=== PATIENT | male | born 1950 | race African-American/Black ===

== ENCOUNTER 2017-07-21 17:48 | Inpatient (IN) | payer MEDICARE, OTHER ==
[2017-07-21] MEDS ORDERED: Potassium Chloride 20 MEQ TAB ONE (19:29)
[2017-07-21 19:44] LABS: Troponin I Less than 0.010 ng/mL (< 0.028)
[2017-07-21] MEDS ORDERED: Albuterol Sulfate 2.5 mg/3 ml Neb ONE (20:06)
[2017-07-21] MEDS ORDERED: OLANZapine 5 MG TAB ONE (20:26)
[2017-07-21] MEDS ORDERED: Magnesium 2 GM/NS 0.9% 100 ML 2 GM in Premix Bag 1 BAG IVPB SCH (20:30)
[2017-07-21] MEDS ORDERED: Magnesium Sulfate 2 GM/100 ML BAG ONE (21:06)
[2017-07-21] MEDS ORDERED: Ondansetron HCl/PF 4 MG/2 ML Vial IVP PRN (22:52)
[2017-07-21] MEDS ORDERED: Ondansetron ODT 4 MG TAB SL PRN (22:52)
[2017-07-21] MEDS ORDERED: Sodium Chloride 0.9% 1,000 ML IV SCH (22:52)
[2017-07-21 23:15] LABS: Lactic Acid 3.4 mmol/L (0.5-2.2)
[2017-07-21] MEDS ORDERED: FLU VACC TS2017-18 (>65YR) 0.5 ML SYRINGE IM ONE (23:30)
[2017-07-22] MEDS ORDERED: Acetaminophen 500 MG TAB PO PRN (01:41)
[2017-07-22] MEDS ORDERED: Acetaminophen 325 MG TAB PO PRN (07:34)
[2017-07-22] MEDS ORDERED: Zolpidem Tartrate 5 MG TAB PO PRN (07:34)
[2017-07-22] MEDS ORDERED: Ondansetron HCl/PF 4 MG/2 ML Vial IVP PRN (07:34)
[2017-07-22] MEDS ORDERED: HYDROcodone/Acetaminophen 5/325 mg Tablet PO PRN (07:34)
--- NOTE | 2017-07-22 08:12 | HP ---
PRIMARY CARE PHYSICIAN: Dr. Neil Boone. Referred to the [facility] by [facility] after transfer from [facility], referred for COPD exacerbation. Patient has been severely short of breath 2-3 da ys, had a cough, nonproductive. No chest pain, no fever, no chills, no sweats. He has been hospital ized in [place] with similar symptoms. He smokes 2 packs a day. He states he quit 24 hours ago. PAST MEDICAL HISTORY: COPD. MEDICATIONS: Unknown. He does not know their names and cannot describe them. As a matter of fact, he could not even tell me whether they were pills or inhalers. ALLERGIES: None. PAST SURGICAL HISTORY: None. FAMILY HISTORY: His parents are . There is no coronary artery disease, diabetes, and hypert ension. SOCIAL HISTORY: Single, drinks no alcohol. Smokes 2 packs a day for many, many years. CODE STATUS: FULL CODE status. Surrogate decision maker unavailable at the present time. He has no t picked one. REVIEW OF SYSTEMS: GENERAL: No headaches, dizziness or fainting. EYES: No double vision, blurred vision, flashing lights. EAR, NOSE, AND THROAT: No ear pain or drainage. No nasal bleeding. No tr ouble swallowing. CARDIAC: No chest pain, orthopnea or paroxysmal nocturnal dyspnea. RESPIRATIONS: See present illness. GASTROINTESTINAL: No nausea, vomiting, diarrhea, abdominal pain. GENITOURIN BAKARI: No hematuria or dysuria. MUSCULOSKELETAL: No pain or swelling in his arms or legs. NEUROLOGI C: No strokes, seizures or focal weakness. PSYCHIATRIC: No anxiety, depression. SKIN: No bruisin g, bleeding or rash. HEME/LYMPH: No tender or swollen lymph nodes in axilla, inguinal or cervical a kathia. PHYSICAL EXAMINATION: VITAL SIGNS: Currently respirations 20, O2 sat 96% on 2 liters of O2, pulse 95 plus or minus, blood pressure 125/73. HEENT: Examination of his head, eyes, ears, nose, and throat; pupils are equal, round, and reactive to light. Extraocular movements are intact. Sclerae are white. Tympanic membranes clear. Nose is clear. Oral mucous membranes are wet. Dental hygiene is bad with multiple broken carious teeth. NECK: No jugular venous distention, adenopathy or thyromegaly. CHEST: Hyperresonant, mild expiratory rales. No focal findings, mild expiratory wheezes, nonfocal. HEART: Regular rate and rhythm. First and second heart sounds are clear. There are no murmurs or g allops. ABDOMEN: Soft, bowel sounds normal. No hepatosplenomegaly, no mass, no rebound. EXTREMITIES: Reveal no cyanosis, clubbing or edema. PULSES: Carotid, radial, and femoral pulses intact. Pedal pulses diminished and symmetric. SKIN: Warm and dry without bruises or rash. HEME/LYMPH: No tender or swollen lymph nodes in axilla, inguinal or cervical area. NEUROLOGIC: Cranial nerves II-XII are intact. Deep tendon reflexes symmetric. LABORATORY DATA AND IMAGING DATA: CBC: White count 13.4 with neutrophilia, hemoglobin 13.8, platele t count 295,000, INR 0.5, D-dimer 0.54. Sodium 134, potassium 3.1, BUN 9, creatinine 1.36. Blood baker gar 135. Initial lactic acid 1.8, follow up 2.6, follow up 3.4. Cardiac enzymes normal. Liver func tion tests normal. EKG none presented for evaluation. We will obtain chest x-ray. No cardiomegaly, CHF or infiltrate reviewed by me. CT of the chest, no pulmonary emboli. ASSESSMENT: 1. Acute respiratory failure with hypoxemia with initial O2 sats in [place] in 80s. 2. Acute exacerbation of chronic obstructive pulmonary disease. 3. Lactic acidosis. 4. Systemic inflammatory response syndrome. 5. Tobacco abuse. PLAN: 1. Admit. 2. IV azithromycin. 3. Frequent nebulizers with DuoNeb 3 mL 4. Oral steroids. 5. IV fluids. 6. Repeat lactic acid level in a.m.
[2017-07-22] MEDS: Azithromycin 500 MG, Admixture Fee 1 EACH in Sodium Chloride 0.9% 250 ML 250 ML IVPB SCH (09:04)
[2017-07-22] MEDS: predniSONE 20 MG TAB PO SCH (09:04)
[2017-07-22] MEDS: Sodium Chloride 0.9% 1,000 ML IV SCH ×2 (09:05→18:25)
--- NOTE | 2017-07-22 18:03 | PDOC.EVN ---
Event Note - Event Note Event Note: home meds- multiple psychtropics
[2017-07-22] MEDS: Benztropine 1 MG TAB PO SCH (21:26)
[2017-07-22] MEDS: OLANZapine 5 MG TAB PO SCH (21:27)
[2017-07-23] MEDS ORDERED: Famotidine 20 MG TAB PO SCH ×2 (02:00→09:00)
[2017-07-23] MEDS: Sodium Chloride 0.9% 1,000 ML IV SCH ×2 (03:00→09:47)
[2017-07-23 06:10] LABS: #Lymphocytes 1.4 thou/uL (1.20-3.40); #Neutrophils 7.3 thou/uL (1.40-6.50); %Basophils 0.4 % (0.0-1.0); %Eosinophils 0.1 % (0.0-10.0); %Lymphocytes 13.9 % (21.0-51.0); %Monocytes 10.5 % (0.0-10.0); %Neutrophils 75.2 % (42.0-75.0); Hemoglobin 11.9 g/dL (14.0-18.0); Mean Corpuscular HGB CONC 31.7 g/dL (32.0-36.0); Mean Corpuscular Hemoglobin 29.6 pg (27.0-31.0); Mean Corpuscular Volume 93.5 fl (80.0-94.0); Mean Platelet Volume 6.3 fL (7.4-10.4); Platelet Count 277 thou/uL (130-400); RBC Distribution Width 15.2 % (11.5-14.5); Red Blood Cell (RBC) Count 4.01 mill/uL (4.70-6.10); White Blood Cell (WBC) Count 9.7 thou/uL (4.8-10.8)
[2017-07-23 06:24] LABS: Anion Gap 9 mmol/L (10-20); BUN (Urea Nitrogen) 9 mg/dL (8.4-25.7); Calc. Creatinine Clearance 0 mL/min (70-130); Calcium 7.9 mg/dL (7.8-10.44); Carbon Dioxide 24 mmol/L (23-31); Chloride 106 mmol/L (98-107); Estimated GFR-MDRD Greater than 90; Glucose 96 mg/dL (80-115); Potassium 3.4 mmol/L (3.5-5.1); Sodium 136 mmol/L (136-145)
[2017-07-23] MEDS ORDERED: Potassium Chloride 20 MEQ TAB PO SCH (08:45)
[2017-07-23] MEDS ORDERED: OLANZapine 5 MG TAB PO SCH (09:00)
[2017-07-23] MEDS: Azithromycin 500 MG, Admixture Fee 1 EACH in Sodium Chloride 0.9% 250 ML 250 ML IVPB SCH (09:37)
[2017-07-23] MEDS: predniSONE 20 MG TAB PO SCH (09:38)
[2017-07-23] MEDS: Topiramate 100 MG TAB PO SCH (09:38)
--- NOTE | 2017-07-23 14:04 | PDOC.PN ---
- Subjective Encounter Start Date: 07/23/17 Encounter Start Time: 07:20 Pt seen for followup re: acute respiratory failure. Reports cough, shortness of breath. No chest pain or fevers. - Objective Resuscitation Status: Resuscitation Status FULL:Full Resuscitation MAR Reviewed: Yes Vital Signs & Weight: Vital Signs (12 hours) Temp Pulse Resp BP Pulse Ox 07/23/17 13:43 106 H 20 95 07/23/17 11:59 97.7 F 109 H 32 H 129/74 96 07/23/17 08:17 98.4 F 92 20 116/66 96 07/23/17 07:53 88 16 96 07/23/17 07:40 98.4 F 92 20 07/23/17 05:20 98.9 F 102 H 26 H 124/67 94 L Weight Weight 7.831 oz I&O: 07/22/17 07/23/17 07/24/17 06:59 06:59 06:59 Intake Total 1200 5160 Output Total 700 1525 Balance 500 3635 Result Diagrams: 07/23/17 05:46 07/23/17 05:46 Phys Exam - Physical Examination Constitutional: NAD HEENT: moist MMs, sclera anicteric, oral pharynx no lesions, 2+ tonsils Neck: no nodes, no JVD, supple, full ROM Respiratory: no wheezing, no rales, no rhonchi, clear to auscultation bilateral Diminished air entry aristeo bases Cardiovascular: RRR, no rub Gastrointestinal: soft, non-tender, no distention, positive bowel sounds Musculoskeletal: pulses present Neurological: moves all 4 limbs Psychiatric: normal affect Deviation from normal: Oriented to person only, not to place or time Dx/Plan (1) Acute respiratory failure with hypoxemia Code(s): J96.01 - ACUTE RESPIRATORY FAILURE WITH HYPOXIA Status: Acute (2) COPD exacerbation Code(s): J44.1 - CHRONIC OBSTRUCTIVE PULMONARY DISEASE W (ACUTE) EXACERBATION Status: Acute (3) Hypokalemia Code(s): E87.6 - HYPOKALEMIA Status: Acute (4) HTN (hypertension) Code(s): I10 - ESSENTIAL (PRIMARY) HYPERTENSION Status: Chronic (5) GERD (gastroesophageal reflux disease) Code(s): K21.9 - GASTRO-ESOPHAGEAL REFLUX DISEASE WITHOUT ESOPHAGITIS Status: Chronic - Plan continue antibiotics, out of bed/ambulate * . Add ceftriaxone. Continue steroids, bronchodilators. Pt still needing supplemental oxygen. Monitor vital signs, titrate antihypertensives as needed. Review of Systems - Review of Systems Constitutional: negative: fever, chills, sweats, weakness, malaise Respiratory: Cough, Dry, SOB with Excertion. negative: Shortness of Breath, Hemoptysis, Pleuritic Pain, Sputum, Wheezing Cardiovascular: negative: chest pain, palpitations, orthopnea, paroxysmal nocturnal dyspnea, edema, light headedness Skin: negative: Rash, Lesions, Juan Luis, Bruising Neurological: negative: Weakness, Numbness, Incoordination, Change in Speech, Confusion, Seizures - Medications/Allergies Allergies/Adverse Reactions: Allergies Allergy/AdvReac Type Severity Reaction Status Date / Time No Known Allergies Allergy Unverified 07/21/17 20:21 Medications: Current Medications Acetaminophen (Tylenol) 650 mg PO Q4H PRN PRN Reason: Headache/Fever or Pain Hydrocodone Bitart/Acetaminophen (Jerome 5/325) 1 tab PO Q4H PRN PRN Reason: Moderate Pain (4-6) Last Admin: 07/23/17 05:31 Dose: 1 tab Albuterol/Ipratropium (Duoneb) 3 ml NEB [id number] [facility] Last Admin: 07/23/17 13:43 Dose: 3 ml Benztropine Mesylate (Cogentin) 2 mg PO [facility] Last Admin: 07/22/17 21:26 Dose: 2 mg Famotidine (Pepcid) 20 mg PO BID [facility] Last Admin: 07/23/17 09:38 Dose: 20 mg Azithromycin 500 mg/Miscellaneous Medication 1 each/ Sodium Chloride 250 mls @ 250 mls/hr IVPB Q24HR [facility] Last Admin: 07/23/17 09:37 Dose: 250 mls Sodium Chloride (Normal Saline 0.9%) 1,000 mls @ 125 mls/hr IV .Q8H [facility] Last Admin: 07/23/17 09:47 Dose: 1,000 mls Olanzapine (Zyprexa) 20 mg PO [facility] Last Admin: 07/22/17 21:27 Dose: 20 mg Ondansetron HCl (Zofran) 4 mg IVP Q6H PRN PRN Reason: Nausea/Vomiting Prednisone (Prednisone) 40 mg PO DAILY [facility] Last Admin: 07/23/17 09:38 Dose: 40 mg Sodium Chloride (Flush - Normal Saline) 10 ml IVF Q12HR [facility] Last Admin: 07/23/17 11:07 Dose: Not Given Sodium Chloride (Flush - Normal Saline) 10 ml IVF PRN PRN PRN Reason: Saline Flush Topiramate (Topamax) 100 mg PO DAILY [facility] Last Admin: 07/23/17 09:38 Dose: 100 mg Zolpidem Tartrate (Ambien) 5 mg PO HSPRN PRN PRN Reason: Insomnia
[2017-07-23] MEDS ORDERED: traMADol HCl 50 MG TAB PO PRN (14:12)
[2017-07-23] MEDS ORDERED: cefTRIAXone\\ROCEPHIN 1 GM in Sodium Chloride 0.9% 100 ML IVPB SCH (14:15)
[2017-07-23] MEDS: cefTRIAXone\\ROCEPHIN 1 GM, Syringe 0.4 ML in Sterile Water 9.6 ML SLOW IVP SCH (15:03)
[2017-07-23] MEDS ORDERED: Bisacodyl 5 MG TAB PO PRN ×2 (16:21→21:27)
[2017-07-23] MEDS ORDERED: Bisacodyl 5 MG TAB PO SCH (16:30)
[2017-07-23] MEDS: Benztropine 1 MG TAB PO SCH (20:55)
[2017-07-23] MEDS: OLANZapine 5 MG TAB PO SCH (20:56)
[2017-07-23] MEDS ORDERED: Mag-Al 1200 mg/1200 mg/30 ML UDCUP PO PRN (21:28)
[2017-07-23] MEDS ORDERED: Mag-Al 1200 mg/1200 mg/30 ML UDCUP PO SCH (21:30)
[2017-07-24 06:09] LABS: #Lymphocytes 1.6 thou/uL (1.20-3.40); #Monocytes 0.8 thou/uL (0.11-0.59); #Neutrophils 4.8 thou/uL (1.40-6.50); %Eosinophils 0.2 % (0.0-10.0); %Lymphocytes 21.9 % (21.0-51.0); %Monocytes 11.7 % (0.0-10.0); %Neutrophils 66.1 % (42.0-75.0); Hemoglobin 12.5 g/dL (14.0-18.0); Mean Corpuscular HGB CONC 31.8 g/dL (32.0-36.0); Mean Corpuscular Volume 94.2 fl (80.0-94.0); Mean Platelet Volume 6.3 fL (7.4-10.4); Platelet Count 296 thou/uL (130-400); RBC Distribution Width 15.4 % (11.5-14.5); Red Blood Cell (RBC) Count 4.17 mill/uL (4.70-6.10); White Blood Cell (WBC) Count 7.2 thou/uL (4.8-10.8)
[2017-07-24 06:11] LABS: Anion Gap 10 mmol/L (10-20); BUN (Urea Nitrogen) 6 mg/dL (8.4-25.7); Calc. Creatinine Clearance 123 mL/min (70-130); Calcium 8.7 mg/dL (7.8-10.44); Carbon Dioxide 23 mmol/L (23-31); Chloride 108 mmol/L (98-107); Estimated GFR-MDRD Greater than 90; Glucose 92 mg/dL (80-115); Potassium 3.9 mmol/L (3.5-5.1); Sodium 137 mmol/L (136-145)
[2017-07-24] MEDS: Azithromycin 500 MG, Admixture Fee 1 EACH in Sodium Chloride 0.9% 250 ML 250 ML IVPB SCH (09:20)
[2017-07-24] MEDS: Topiramate 100 MG TAB PO SCH (09:20)
[2017-07-24] MEDS: Triamterene/Hydrochlorothiazide 37.5 mg/25 mg Tablet PO SCH (09:22)
[2017-07-24] MEDS: predniSONE 20 MG TAB PO SCH (09:23)
--- NOTE | 2017-07-24 13:42 | PDOC.PN ---
- Subjective Encounter Start Date: 07/24/17 Encounter Start Time: 08:00 Pt seen for followup re: acute respiratory failure. Feels better. Occ cough+, no sputum. No fevers. - Objective Resuscitation Status: Resuscitation Status FULL:Full Resuscitation MAR Reviewed: Yes Vital Signs & Weight: Vital Signs (12 hours) Temp Pulse Resp BP Pulse Ox 07/24/17 07:54 90 16 07/24/17 04:05 98.3 F 89 24 H 138/78 95 Weight Weight 218 lb 4.122 oz I&O: 07/23/17 07/24/17 07/25/17 06:59 06:59 06:59 Intake Total 5160 3470 Output Total 1525 1600 Balance 3635 1870 Result Diagrams: 07/24/17 05:11 07/24/17 05:11 Phys Exam - Physical Examination Constitutional: NAD HEENT: moist MMs Neck: supple Respiratory: clear to auscultation bilateral Cardiovascular: RRR Gastrointestinal: soft Neurological: non-focal Lymphatic: no nodes Dx/Plan (1) Acute respiratory failure with hypoxemia Code(s): J96.01 - ACUTE RESPIRATORY FAILURE WITH HYPOXIA Status: Acute (2) COPD exacerbation Code(s): J44.1 - CHRONIC OBSTRUCTIVE PULMONARY DISEASE W (ACUTE) EXACERBATION Status: Acute (3) HTN (hypertension) Code(s): I10 - ESSENTIAL (PRIMARY) HYPERTENSION Status: Chronic (4) GERD (gastroesophageal reflux disease) Code(s): K21.9 - GASTRO-ESOPHAGEAL REFLUX DISEASE WITHOUT ESOPHAGITIS Status: Chronic (5) Hypokalemia Code(s): E87.6 - HYPOKALEMIA Status: Resolved - Plan PT/OT, respiratory therapy, out of bed/ambulate * . Ambulate patient. Try to wean off of supplemental oxygen. Change steroids to IV, reassess in AM. Review of Systems - Review of Systems Respiratory: Cough, SOB with Excertion. negative: Dry, Shortness of Breath, Hemoptysis, Pleuritic Pain, Sputum, Wheezing Cardiovascular: negative: chest pain, palpitations, orthopnea, paroxysmal nocturnal dyspnea, edema, light headedness - Medications/Allergies Allergies/Adverse Reactions: Allergies Allergy/AdvReac Type Severity Reaction Status Date / Time No Known Allergies Allergy Unverified 07/21/17 20:21 Medications: Current Medications Acetaminophen (Tylenol) 650 mg PO Q4H PRN PRN Reason: Headache/Fever or Pain Last Admin: 07/23/17 21:51 Dose: 650 mg Al Hydroxide/Mg Hydroxide (Maalox) 10 ml PO Q6H PRN PRN Reason: HEARTBURN/INDIGESTION Last Admin: 07/24/17 04:03 Dose: 10 ml Albuterol/Ipratropium (Duoneb) 3 ml NEB [id number] [facility] Last Admin: 07/24/17 07:54 Dose: 3 ml Benztropine Mesylate (Cogentin) 2 mg PO HS [facility] Last Admin: 07/23/17 20:55 Dose: 2 mg Bisacodyl (Dulcolax) 10 mg PO DAILYPRN PRN PRN Reason: CONSTIPATION Bisacodyl (Dulcolax) 15 mg PO Q8H PRN PRN Reason: CONSTIPATION Last Admin: 07/23/17 22:19 Dose: 15 mg Azithromycin 500 mg/Miscellaneous Medication 1 each/ Sodium Chloride 250 mls @ 250 mls/hr IVPB Q24HR [facility] Last Admin: 07/24/17 09:20 Dose: 250 mls Ceftriaxone Sodium 1 gm/ (Syringe 0.4 ml/ Sterile Water) 10 mls @ 120 mls/hr SLOW IVP Q24HR@1500 [facility] Last Admin: 07/23/17 15:03 Dose: 10 mls Olanzapine (Zyprexa) 20 mg PO [facility] Last Admin: 07/23/17 20:56 Dose: 20 mg Ondansetron HCl (Zofran) 4 mg IVP Q6H PRN PRN Reason: Nausea/Vomiting Pantoprazole Sodium (Protonix) 40 mg PO DAILY [facility] Last Admin: 07/24/17 09:20 Dose: 40 mg Prednisone (Prednisone) 40 mg PO DAILY [facility] Last Admin: 07/24/17 09:23 Dose: 40 mg Sodium Chloride (Flush - Normal Saline) 10 ml IVF Q12HR [facility] Last Admin: 07/23/17 22:12 Dose: Not Given Sodium Chloride (Flush - Normal Saline) 10 ml IVF PRN PRN PRN Reason: Saline Flush Topiramate (Topamax) 100 mg PO DAILY [facility] Last Admin: 07/24/17 09:20 Dose: 100 mg Tramadol HCl (Ultram) 50 mg PO Q6H PRN PRN Reason: Pain Triamterene/HCTZ (Maxzide-25) 1 tab PO QAM [facility] Last Admin: 07/24/17 09:22 Dose: 1 tab Zolpidem Tartrate (Ambien) 5 mg PO HSPRN PRN PRN Reason: Insomnia
[2017-07-24] MEDS: cefTRIAXone\\ROCEPHIN 1 GM, Syringe 0.4 ML in Sterile Water 9.6 ML SLOW IVP SCH (16:08)
[2017-07-24] MEDS: OLANZapine 5 MG TAB PO SCH (21:01)
[2017-07-24] MEDS: Benztropine 1 MG TAB PO SCH (21:03)
[2017-07-25 06:23] LABS: #Basophils 0.1 thou/uL (0.0-0.2); #Lymphocytes 0.8 thou/uL (1.20-3.40); #Monocytes 0.4 thou/uL (0.11-0.59); #Neutrophils 4.4 thou/uL (1.40-6.50); %Basophils 0.9 % (0.0-1.0); %Eosinophils 0.2 % (0.0-10.0); %Lymphocytes 13.5 % (21.0-51.0); %Monocytes 7.2 % (0.0-10.0); %Neutrophils 78.3 % (42.0-75.0); Hemoglobin 12.9 g/dL (14.0-18.0); Mean Corpuscular HGB CONC 32.5 g/dL (32.0-36.0); Mean Corpuscular Hemoglobin 30.2 pg (27.0-31.0); Mean Platelet Volume 6.1 fL (7.4-10.4); Platelet Count 298 thou/uL (130-400); RBC Distribution Width 15.3 % (11.5-14.5); Red Blood Cell (RBC) Count 4.28 mill/uL (4.70-6.10); White Blood Cell (WBC) Count 5.6 thou/uL (4.8-10.8)
[2017-07-25 06:40] LABS: Anion Gap 15 mmol/L (10-20); BUN (Urea Nitrogen) 7 mg/dL (8.4-25.7); Calc. Creatinine Clearance 124 mL/min (70-130); Calcium 9.2 mg/dL (7.8-10.44); Carbon Dioxide 21 mmol/L (23-31); Chloride 106 mmol/L (98-107); Estimated GFR-MDRD Greater than 90; Glucose 185 mg/dL (80-115); Potassium 3.9 mmol/L (3.5-5.1); Sodium 138 mmol/L (136-145)
[2017-07-25] MEDS: Topiramate 100 MG TAB PO SCH (09:42)
[2017-07-25] MEDS ORDERED: Sodium Chloride 0.9% 10 ML ONE (09:44)
[2017-07-25] MEDS: Azithromycin 500 MG, Admixture Fee 1 EACH in Sodium Chloride 0.9% 250 ML 250 ML IVPB SCH (09:48)
[2017-07-25] MEDS: Triamterene/Hydrochlorothiazide 37.5 mg/25 mg Tablet PO SCH (09:48)
[2017-07-25] MEDS ORDERED: Magnesium Citrate 300 ML BOT PO SCH (11:15)
[2017-07-25] MEDS ORDERED: Metoprolol Tartrate 100 MG TAB PO SCH ×2 (11:30→21:00)
[2017-07-25 12:05] VITALS: TEMP 98.3
[2017-07-25 13:03] VITALS: BP 142/75
[2017-07-25] MEDS ORDERED: Cefdinir 300 MG CAP PO SCH (21:00)
--- NOTE | 2017-07-26 00:01 | DIS ---
PRIMARY CARE PHYSICIAN: Neil Boone M.D. DATE OF ADMISSION: 07/22/2017 DATE OF DISCHARGE: 07/25/2017 DISCHARGE DIAGNOSES: 1. Acute hypoxic respiratory failure. 2. Chronic obstructive pulmonary disease exacerbation. CONDITION OF PATIENT AT THE TIME OF DISCHARGE: Stable. I assessed Mr. Mcdonald on the day of discharge. He denies any chest pain or shortness of breath. Vital signs are stable, and he is saturating well on room air. S1 and S2 are heard, regular. Lungs are clear to auscultation bilaterally. DISCHARGE MEDICATIONS: Cefdinir 300 mg 2 times a day for 7 days, Medrol Dosepak as directed, benztro pine 2 mg at bedtime, metoprolol 100 mg 2 times a day, olanzapine 20 mg daily, omeprazole 40 mg daily , topiramate 100 mg daily, triamterene/hydrochlorothiazide 1 capsule daily. HOSPITAL COURSE: Mr. Mcdonald is a pleasant 66-year-old gentleman who was admitted to [facility] on 07/22/2017 for acute hypoxic respiratory failure secondary to chronic obstructive pulmonary disease exacerbation. He improved with oxygen, steroids, bronchodilators and antibiotics. He was also constipated and received laxatives. He is being discharged home in a stable condition. On the day of discharge, he has a white count of 5600, hemoglobin 12.9, platelet count 298,000. Sodi um 138, potassium 3.9, and creatinine 0.82. Many thanks for allowing me to participate in your patient's care. Please feel free to contact me wi th any questions or concerns. DISCHARGE DESTINATION: Home. TOTAL AMOUNT OF TIME SPENT COORDINATING THIS DISCHARGE: 33 minutes.
[2017-07-26] MEDS ORDERED: predniSONE 20 MG TAB PO SCH (08:00)
== END 2017-07-25 16:03 | disposition home or self-care (01) | DRG 189 ==
LOC: ERS 17:48 → 3SE 22:20
PROVIDERS: ADMIT Internal Medicine; ATTEND Internal Medicine
DX: J96.01 Acute respiratory failure with hypoxia (principal); E87.2 Acidosis; J44.1 Chronic obstructive pulmonary disease with (acute) exacerbation; R65.10 Systemic inflammatory response syndrome (SIRS) of non-infectious origin without acute organ dysfunction; F17.210 Nicotine dependence, cigarettes, uncomplicated; K21.9 Gastro-esophageal reflux disease without esophagitis; E87.6 Hypokalemia
CPT/HCPCS: 36415; 80048; 83605; 85025; 87040; 94640; 94760; 96365; 96367; A4216; J0456; J0696; J1956; J2920; J3475; J7050; J7506; J7611; J7620

== ENCOUNTER 2018-03-15 16:19 | Inpatient (IN) | payer MEDICAID, MEDICARE, OTHER ==
[2018-03-15 17:36] LABS: #Basophils 0.1 thou/uL (0.0-0.2); #Eosinphils 0.1 thou/uL (0.0-0.7); #Lymphocytes 2.4 thou/uL (1.20-3.40); #Monocytes 1.8 thou/uL (0.11-0.59); #Neutrophils 14.3 thou/uL (1.40-6.50); %Basophils 0.5 % (0.0-1.0); %Eosinophils 0.5 % (0.0-10.0); %Lymphocytes 12.6 % (21.0-51.0); %Monocytes 9.5 % (0.0-10.0); %Neutrophils 76.9 % (42.0-75.0); Hemoglobin 12.5 g/dL (14.0-18.0); Mean Corpuscular HGB CONC 31.9 g/dL (32.0-36.0); Mean Corpuscular Hemoglobin 29.4 pg (27.0-31.0); Mean Platelet Volume 6.3 fL (7.4-10.4); Platelet Count 395 thou/uL (130-400); RBC Distribution Width 13.7 % (11.5-14.5); Red Blood Cell (RBC) Count 4.25 mill/uL (4.70-6.10); White Blood Cell (WBC) Count 18.6 thou/uL (4.8-10.8)
[2018-03-15 17:59] LABS: ALT (SGPT) 16 U/L (8-55); AST (SGOT) 17 U/L (5-34); Albumin 3.6 g/dL (3.4-4.8); Alkaline Phosphatase 112 U/L (40-150); Anion Gap 13 mmol/L (10-20); BUN (Urea Nitrogen) 11 mg/dL (8.4-25.7); Bilirubin, Total 0.8 mg/dL (0.2-1.2); CK (CPK) 202 U/L (30-200); CRP (Inflammatory) 19.67 mg/dL (= or < 0.5); Calc. Creatinine Clearance 0 mL/min (70-130); Calcium 8.6 mg/dL (7.8-10.44); Carbon Dioxide 19 mmol/L (23-31); Chloride 103 mmol/L (98-107); Estimated GFR-MDRD 70; Globulin 4.5 g/dL (2.4-3.5); Glucose 158 mg/dL (80-115); Lipase 9 U/L (8-78); Protein, Total 8.1 g/dL (5.8-8.1); Sodium 132 mmol/L (136-145)
[2018-03-15] MEDS ORDERED: cefTRIAXone\\ROCEPHIN 1 GM VIAL ONE (19:02)
--- NOTE | 2018-03-15 19:35 | PDOC.FPRHP ---
- History of Present Illness Chief Complaint: Hand pain History of Present Illness: Mr. Mcdonald presents today from clinic complaining of some right elbow and hand pain for a day. He says he has never had anything like this before and it came on all of the sudden without trauma. He denies fever, chills, SOB, N/V/D, or weakness. He reports no other locations for joint pain. Pt is somewhat of a poor historian, dx of paranoid schizophrenia ED Course: CBC elevated WBC, CMP, LA, EKG, CRP elevated, UA, CK elevated , BCx, TSH, Lipase - Allergies/Adverse Reactions Allergies Allergy/AdvReac Type Severity Reaction Status Date / Time No Known Allergies Allergy Unverified 07/21/17 20:21 - Home Medications Medication Instructions Recorded Confirmed Type Benztropine Mesylate 2 mg PO HS 07/22/17 03/15/18 History Metoprolol Tartrate 100 mg PO BID 07/22/17 03/15/18 History OLANZapine [Zyprexa] 20 mg PO DAILY 07/22/17 03/15/18 History Omeprazole 40 mg PO DAILY 07/22/17 03/15/18 History Topiramate 100 mg PO DAILY 07/22/17 03/15/18 History Triamterene/Hydrochlorothiazid 1 each PO DAILY 07/22/17 03/15/18 History [Triamterene-Hctz 37.5-25 mg Cp] methylPREDNISolone [Medrol Dospak] 4 mg PO ASDIR #1 pack 07/25/17 03/15/18 Rx - History PMHx:hypothyroid, gerd, OA, migraines, chronic bronchitis, schizophrenia PSHx: none FHx:none Social: former smoker - Review of Systems General: denies: fever/chills, weight/appetite/sleep changes Eyes: denies: vision changes ENT: denies: nasal congestion, rhinorrhea Respiratory: denies: cough, shortness of breath Cardiovascular: denies: chest pain, palpitation Gastrointestinal: denies: nausea, vomiting, diarrhea Skin: denies: rashes, lesions Musculoskeletal: reports: pain, tenderness, stiffness, swelling, other (all in R 2nd MCP and elbow) Neurological: denies: numbness, weakness - Vital signs BP: [133/82] HR: [103] RR: [20] Tmax: [98.2] Pox: [97]% on [RA] Wt: [122.47kg ] - Physical Exam Constitutional: NAD, well developed HEENT: normocephalic and atraumatic, EOMI, grossly normal vision, grossly normal hearing Neck: supple, trachea midline Chest: no-tender to palpation, no lesions Heart: RRR, normal S1/S2 Lungs: CTAB, good air movement Abdomen: soft, non-tender Musculoskeletal: normal structure, other (R 2nd metacarpal joint swelling pain, reduced ROM d/t pain. neurovascular intact) Neurological: no focal deficit, CN II-XII intact Skin: no rash/lesions, good turgor Heme/Lymphatic: no unusual bruising or bleeding, no petechia Psychiatric: other (scattered/pressured speech, poor insight into condition) FMR H&P: Results - Labs Result Diagrams: 03/15/18 17:24 03/15/18 17:24 Lab results: WBC 18.6 thou/uL (4.8-10.8) H 03/15/18 17:24 Hgb 12.5 g/dL (14.0-18.0) L 03/15/18 17:24 Hct 39.1 % (42.0-52.0) L 03/15/18 17:24 MCV 92.0 fL (78.0-98.0) 03/15/18 17:24 Plt Count 395 thou/uL (130-400) 03/15/18 17:24 Neutrophils % 76.9 % (42.0-75.0) H 03/15/18 17:24 Sodium 132 mmol/L (136-145) L 03/15/18 17:24 Potassium 3.0 mmol/L (3.5-5.1) L 03/15/18 17:24 Chloride 103 mmol/L (98-107) 03/15/18 17:24 Carbon Dioxide 19 mmol/L (23-31) L 03/15/18 17:24 BUN 11 mg/dL (8.4-25.7) 03/15/18 17:24 Creatinine 1.25 mg/dL (0.6-1.3) 03/15/18 17:24 Glucose 158 mg/dL (80-115) H 03/15/18 17:24 Lactic Acid 1.8 mmol/L (0.5-2.2) 03/15/18 17:24 Calcium 8.6 mg/dL (7.8-10.44) 03/15/18 17:24 Total Bilirubin 0.8 mg/dL (0.2-1.2) 03/15/18 17:24 AST 17 U/L (5-34) 03/15/18 17:24 ALT 16 U/L (8-55) 03/15/18 17:24 Alkaline Phosphatase 112 U/L (40-150) 03/15/18 17:24 Creatine Kinase 202 U/L (30-200) H 03/15/18 17:24 C-Reactive Protein 19.67 mg/dL (= or < 0.5) H 03/15/18 17:24 Serum Total Protein 8.1 g/dL (5.8-8.1) 03/15/18 17:24 Albumin 3.6 g/dL (3.4-4.8) 03/15/18 17:24 Lipase 9 U/L (8-78) 03/15/18 17:24 FMR H&P: A/P - Problem List (1) Painful swelling of joint Current Visit: Yes Status: Acute Code(s): M25.40 - EFFUSION, UNSPECIFIED JOINT (2) Leukocytosis Current Visit: Yes Status: Acute Code(s): D72.829 - ELEVATED WHITE BLOOD CELL COUNT, UNSPECIFIED (3) GERD (gastroesophageal reflux disease) Current Visit: No Status: Chronic Code(s): K21.9 - GASTRO-ESOPHAGEAL REFLUX DISEASE WITHOUT ESOPHAGITIS (4) HTN (hypertension) Current Visit: No Status: Chronic Code(s): I10 - ESSENTIAL (PRIMARY) HYPERTENSION - Plan 1. Joint pain and swelling - septic arthritis vs gouty attack - start vancomycin 15 mg/kg q8hr - radiograph of hand to evaluate for osteomyelitis - uric acid to evaluate for gout - consider joint aspiration and analysis 2. Leukocytosis - joint as possible source of infection - repeat CBC in AM - monitor vitals on medical floor 3. GERD - unsure of home medications, med rec with pharmacy 4. HTN - unsure of home medications, med rec with pharmacy 5. Paranoid schizophrenia - unsure of other diagnoses or medication regimen - follow up with PCP and pharmacy to obtain medications and diagnoses Disposition/LOS: begin treatment for septic arthritis, repeat CBC in AM, evaluate for Gout, possible DC tomorrow pending negative results FMR H&P: Upper Level - Pertinent history 67M presents for right hand swelling. He says this is new issue that never occurred before. It occured today, worsen, associated with mild pain. He specifically denies fever, chills, loss of strength, loss of sensation, warmth or redness. He says he bumped his elbow on his commode yesterday but otherwise has no trauma. He was reported by ER to have been sent from Dr. Horner office to here. Record was obtain of hand xray done today showing only mild arthritic changes. - Pertinent findings Gen: Alert, oriented CV: RRR with no apparent m/g/r Resp: CTA bilaterally Extremeties: No obvious infected lesion on right arm. Swelling present over 2-4 metacarpal phalangeal joint. No erythema noted. Diffuse swelling not located over any particular joint. Subjective pain on palpation, but not associated to any joint or bone. Sensation grossly intact. Muscle strength 4/5 on right compared to left. WBC 18.6 K 3 Na 132 Hand xray: Mild osteoarthritic changes - Plan Date/Time: 03/15/181931 I, [Mihai Dhaliwal], have evaluated this patient and agree with findings/plan as outlined by general internist and physician leader resident. Pertinent changes/additions are listed here. 1. Joint pain - Dx includes septic arthritis, gout, RA, osteoarthritis - Will start vanc empricially due to increased WBC. Consider aspiration of joint for stain/culture. - Uric acid to evaluate for gout. 2. Sepsis - Meet sirs critera on leukocytosis, pulse 101. - Possible source as hand - On vancomycin. 2 L NS bolus. Will obtain procalcitonin. 3. GERD - Chronic issue. Not symptomatic at this time. Patient unsure of home med. Will treat symptomatically while here 4. HTN - Patient unsure of home med. Not symptomatic at this time. Will attempt to contact PCP tomorrow to reconcil 5. Paranoid schizophrenia - Nnot symptomatic at this time. Will discuss with PCP to reconcil med. 6. Hypokalemia - Potassium of 3.0. Replete, and remeasure wit [facility] lab.
--- NOTE | 2018-03-15 19:45 | RAD ---
CHEST ONE VIEW: History: Fever. Comparison: 07-21-17 FINDINGS: Slight elongation of the aorta. Normal cardiac silhouette. The pulmonary vessels and hilum are normal . No consolidation or mass. No pneumothorax or osseous abnormalities. Subsegmental atelectasis or sca rring in the left lung base. IMPRESSION: No acute cardiopulmonary process. POS: [facility]
[2018-03-15 19:54] LABS: Bilirubin Negative (Negative); Blood, Urine Negative (Negative); Clarity CLEAR (Clear); Glucose, Urine (Dipstick) Negative (Negative); Leukocyte Negative (Negative); Nitrite Negative (Negative); Protein, Urine (Dipstick) Negative (Neg-Trace); Specific Gravity, Urine 1.009 (1.002-1.036)
[2018-03-15] MEDS ORDERED: Sodium Chloride 0.9% 1,000 ML IV SCH ×2 (20:41)
[2018-03-15] MEDS ORDERED: Ondansetron ODT 4 MG TAB SL PRN (20:47)
[2018-03-15] MEDS ORDERED: Acetaminophen 325 MG TAB PO PRN (20:47)
[2018-03-15] MEDS ORDERED: Ondansetron HCl/PF 4 MG/2 ML Vial IVP PRN (20:47)
[2018-03-15] MEDS: Sodium Chloride 0.9% 1,000 ML IV SCH (21:05)
[2018-03-15 21:10] VITALS: BMI 35.2
[2018-03-15] MEDS ORDERED: Potassium Chloride 20 MEQ TAB PO SCH (21:15)
[2018-03-15] MEDS: Vancomycin HCl 1.75 GM in Sodium Chloride 0.9% 500 ML IVPB SCH (21:27)
--- NOTE | 2018-03-15 23:19 | RAD ---
RADIOGRAPH RIGHT HAND FOUR VIEWS: 03/15/2018 9:42 p.m. HISTORY: A 67-year-old male with right hand swelling. COMPARISON: Three view radiograph of the right hand obtained earlier today (03/15/2018) at 12:27 p.m., at [facility]. FINDINGS: As previously mentioned, there are minimal/mild degenerative changes at the first MCP, first CMC and minimal such changes at all the DIPs. No erosions are visualized. No periostitis. No destructive/p ermeative osseous lesion. No fracture or dislocation. There is soft tissue swelling of the hand, di ffusely, which may or may not have become slightly worse since the previous radiographic study boyd portillo today. IMPRESSION: 1. Diffuse soft tissue edema of the left hand. 2. No major osseous pathology identified. POS: [facility]
[2018-03-16] MEDS: Acetaminophen 325 MG TAB PO PRN (00:34)
[2018-03-16 05:05] LABS: #Eosinphils 0.1 thou/uL (0.0-0.7); #Lymphocytes 2.4 thou/uL (1.20-3.40); #Monocytes 1.6 thou/uL (0.11-0.59); #Neutrophils 11.3 thou/uL (1.40-6.50); %Basophils 0.1 % (0.0-1.0); %Eosinophils 0.5 % (0.0-10.0); %Lymphocytes 15.6 % (21.0-51.0); %Monocytes 10.2 % (0.0-10.0); %Neutrophils 73.5 % (42.0-75.0); Hemoglobin 10.8 g/dL (14.0-18.0); Mean Corpuscular HGB CONC 32.3 g/dL (32.0-36.0); Mean Corpuscular Hemoglobin 29.5 pg (27.0-31.0); Mean Corpuscular Volume 91.3 fL (78.0-98.0); Mean Platelet Volume 6.2 fL (7.4-10.4); Platelet Count 385 thou/uL (130-400); RBC Distribution Width 13.6 % (11.5-14.5); Red Blood Cell (RBC) Count 3.65 mill/uL (4.70-6.10); White Blood Cell (WBC) Count 15.4 thou/uL (4.8-10.8)
[2018-03-16] MEDS: Sodium Chloride 0.9% 1,000 ML IV SCH (05:16)
[2018-03-16 05:17] LABS: ALT (SGPT) 9 U/L (8-55); AST (SGOT) 15 U/L (5-34); Albumin 3.1 g/dL (3.4-4.8); Alkaline Phosphatase 97 U/L (40-150); Anion Gap 12 mmol/L (10-20); BUN (Urea Nitrogen) 10 mg/dL (8.4-25.7); Bilirubin, Total 0.7 mg/dL (0.2-1.2); Calc. Creatinine Clearance 120 mL/min (70-130); Calcium 8.5 mg/dL (7.8-10.44); Carbon Dioxide 21 mmol/L (23-31); Chloride 104 mmol/L (98-107); Estimated GFR-MDRD 90; Glucose 162 mg/dL (80-115); Protein, Total 7.1 g/dL (5.8-8.1); Sodium 134 mmol/L (136-145)
[2018-03-16 05:22] LABS: Potassium 2.7 mmol/L (3.5-5.1)
[2018-03-16] MEDS ORDERED: Potassium Chloride 20 MEQ TAB PO SCH (05:30)
[2018-03-16] MEDS: Budesonide 0.5 MG/2 ML NEB INH SCH ×2 (06:42→19:09)
[2018-03-16] MEDS: Arformoterol 15 MCG/2 ML NEB NEB SCH ×2 (06:44→19:08)
[2018-03-16] MEDS: Triamterene/Hydrochlorothiazide 37.5 mg/25 mg Tablet PO SCH (08:42)
[2018-03-16] MEDS: Potassium Chloride 20 MEQ TAB PO SCH ×2 (08:42→16:52)
[2018-03-16] MEDS: Topiramate 100 MG TAB PO SCH (08:43)
[2018-03-16] MEDS: Metoprolol Tartrate 100 MG TAB PO SCH ×2 (08:43→20:07)
[2018-03-16] MEDS: OLANZapine 5 MG TAB PO SCH (08:43)
[2018-03-16] MEDS: Enoxaparin Sodium 40 MG/0.4 ML SYRINGE SC SCH (08:44)
--- NOTE | 2018-03-16 08:51 | PDOC.FM ---
- Subjective Subjective: PT found resting comfortably this morning. He complains of continued R 3rd MCP pain, however states that it is improving. He states that he has never had similar symptoms, denies trauma, and can think of no other inciting event. There were no acute events over night. Pt denies new symptoms or problems. - Objective Vital Signs & Weight: Vital Signs (12 hours) Temp Pulse Resp BP BP Pulse Ox 03/16/18 07:41 98.5 F 102 H 19 109/70 95 03/16/18 06:44 95 03/16/18 06:42 98 16 95 03/16/18 04:00 99.4 F 105 H 20 127/78 97 03/16/18 00:00 99.8 F H 112 H 20 117/74 97 03/15/18 23:04 95 Weight Weight 117.979 kg Result Diagrams: 03/16/18 04:33 03/16/18 04:33 Phys Exam - Physical Examination Constitutional: NAD HEENT: PERRLA, moist MMs Neck: no nodes, no JVD Respiratory: clear to auscultation bilateral Cardiovascular: RRR, no significant murmur Gastrointestinal: soft, non-tender, no distention, positive bowel sounds Musculoskeletal: no edema, pulses present R 3rd MCP TTP and with ROM. Edema over dorsum of R hand Neurological: non-focal, normal sensation, moves all 4 limbs Lymphatic: no nodes Psychiatric: normal affect, A&O x 3 Skin: no rash, normal turgor Dx/Plan (1) Painful swelling of joint Code(s): M25.40 - EFFUSION, UNSPECIFIED JOINT Status: Acute (2) Leukocytosis Code(s): D72.829 - ELEVATED WHITE BLOOD CELL COUNT, UNSPECIFIED Status: Acute (3) Hypokalemia Code(s): E87.6 - HYPOKALEMIA Status: Acute (4) Schizophrenia Code(s): F20.9 - SCHIZOPHRENIA, UNSPECIFIED Status: Chronic (5) Tardive dyskinesia Code(s): G24.01 - DRUG INDUCED SUBACUTE DYSKINESIA Status: Chronic (6) GERD (gastroesophageal reflux disease) Code(s): K21.9 - GASTRO-ESOPHAGEAL REFLUX DISEASE WITHOUT ESOPHAGITIS Status: Chronic (7) HTN (hypertension) Code(s): I10 - ESSENTIAL (PRIMARY) HYPERTENSION Status: Chronic - Plan Plan: Joint pain and swelling - septic arthritis vs gouty attack vs rheumatic etiology - Uric acid and rhem labs pending - start vancomycin 15 mg/kg q8hr - radiograph of hand finds soft tissue swelling only - procal negative - consider joint aspiration and analysis - pain is currently well controlled, consider starting indomethacin if pain worsens Hypokalemia - replace PO. - recheck BMP at 1500 - Mg pending, replace if indicated. Leukocytosis - joint as possible source of infection vs acute inflammation - monitor vitals on medical floor - blood and urine cx pending GERD - continue home meds HTN - continue home meds Paranoid schizophrenia - Continue home meds Dispo: Continue to treat for infection until it can be ruled out. Evaluate for Gout or rheum cause. Likely dc in am
--- NOTE | 2018-03-16 09:04 | PDOC.FM ---
- Subjective Subjective: Pt found resting comfortably in bed. He denies SOB or chest pain. Yesterday afternoon he states that he was having trouble having a BM and was having some cramping. He did have a BM over night and states that his pain is somewhat improved today. CM is currently waiting on approval for a bed at [facility] for swing bed - Objective Vital Signs & Weight: Vital Signs (12 hours) Temp Pulse Resp BP BP Pulse Ox 03/16/18 07:41 98.5 F 102 H 19 109/70 95 03/16/18 06:44 95 03/16/18 06:42 98 16 95 03/16/18 04:00 99.4 F 105 H 20 127/78 97 03/16/18 00:00 99.8 F H 112 H 20 117/74 97 03/15/18 23:04 95 Weight Weight 117.979 kg Result Diagrams: 03/16/18 04:33 03/16/18 04:33 Phys Exam - Physical Examination Constitutional: NAD HEENT: PERRLA, moist MMs Neck: no nodes, no JVD Decreased breath sounds on L with rales Cardiovascular: RRR, no significant murmur Gastrointestinal: soft, non-tender, no distention Musculoskeletal: no edema Neurological: non-focal, normal sensation, moves all 4 limbs Psychiatric: normal affect, A&O x 3 Skin: no rash Dx/Plan (1) Painful swelling of joint Code(s): M25.40 - EFFUSION, UNSPECIFIED JOINT Status: Acute (2) Leukocytosis Code(s): D72.829 - ELEVATED WHITE BLOOD CELL COUNT, UNSPECIFIED Status: Acute (3) Hypokalemia Code(s): E87.6 - HYPOKALEMIA Status: Acute (4) Schizophrenia Code(s): F20.9 - SCHIZOPHRENIA, UNSPECIFIED Status: Chronic (5) Tardive dyskinesia Code(s): G24.01 - DRUG INDUCED SUBACUTE DYSKINESIA Status: Chronic (6) GERD (gastroesophageal reflux disease) Code(s): K21.9 - GASTRO-ESOPHAGEAL REFLUX DISEASE WITHOUT ESOPHAGITIS Status: Chronic (7) HTN (hypertension) Code(s): I10 - ESSENTIAL (PRIMARY) HYPERTENSION Status: Chronic
[2018-03-16 09:19] LABS: Magnesium 2.1 mg/dL (1.6-2.6); Uric Acid 8.5 mg/dL (3.5-7.2)
[2018-03-16] MEDS: Vancomycin HCl 1.75 GM in Sodium Chloride 0.9% 500 ML IVPB SCH ×2 (09:38→20:07)
--- NOTE | 2018-03-16 11:34 | PRG ---
DATE OF SERVICE: 03/16/2018 Mr. Mcdonald was admitted with a swollen right hand and pain, particularly over his third MCP joint. I a m concerned about the possibility of a possible septic arthritis and we will ask IR to attempt a flui d aspiration for further definitive study. We are also checking for gout and other rheumatologic dis orders. He states that he is feeling somewhat better. We will continue with intravenous vancomycin until the aspiration has been performed and studies done on the aspirate.
[2018-03-16 15:44] LABS: Anion Gap 13 mmol/L (10-20); BUN (Urea Nitrogen) 7 mg/dL (8.4-25.7); Calc. Creatinine Clearance 129 mL/min (70-130); Calcium 8.7 mg/dL (7.8-10.44); Carbon Dioxide 18 mmol/L (23-31); Chloride 105 mmol/L (98-107); Estimated GFR-MDRD Greater than 90; Glucose 181 mg/dL (80-115); Potassium 3.2 mmol/L (3.5-5.1); Sodium 133 mmol/L (136-145)
[2018-03-16] MEDS: Albuterol Sulfate 2.5 mg/3 ml Neb NEB PRN (16:54)
--- NOTE | 2018-03-16 17:43 | RAD ---
FLUOROSCOPICALLY DIRECTED JOINT ASPIRATION OF METACARPOPHALANGEAL JOINT OF MIDDLE FINGER: 03/16/18 HISTORY: Evaluation for infection versus gout. After informed consent was obtained, the patient was prepped and draped in a normal sterile fashion. Local anesthesia obtained with 1% Xylocaine. A 25 gauge needle was inserted in the joint space withou t difficulty. Attempted aspiration was unsuccessful. Subsequently some contrast was injected to confi rm intra-articular position. Intra-articular position is confirmed and at that point aspiration was a gain attempted. There was only one small drop of fluid obtained. This was sent to the lab. Discussed with the laborer bituminous paving since this was such a small amount and the lab will contact the doctor rishabh nagy whether he would prefer this to be evaluated for infection versus gout as the sample is minuscul e. IMPRESSION: Fluoroscopically directed joint aspiration. No immediate complications of the procedure. POS: SAWYER
[2018-03-16] MEDS: Benztropine 1 MG TAB PO SCH (20:07)
[2018-03-17] MEDS: Acetaminophen 325 MG TAB PO PRN ×2 (05:22→10:43)
[2018-03-17 05:55] LABS: #Basophils 0.1 thou/uL (0.0-0.2); #Eosinphils 0.1 thou/uL (0.0-0.7); #Lymphocytes 2.4 thou/uL (1.20-3.40); #Monocytes 1.6 thou/uL (0.11-0.59); #Neutrophils 10.6 thou/uL (1.40-6.50); %Basophils 0.4 % (0.0-1.0); %Eosinophils 0.7 % (0.0-10.0); %Lymphocytes 16.2 % (21.0-51.0); %Neutrophils 71.8 % (42.0-75.0); Hemoglobin 10.7 g/dL (14.0-18.0); Mean Corpuscular HGB CONC 33.5 g/dL (32.0-36.0); Mean Corpuscular Hemoglobin 30.9 pg (27.0-31.0); Mean Corpuscular Volume 92.3 fL (78.0-98.0); Mean Platelet Volume 6.2 fL (7.4-10.4); Platelet Count 407 thou/uL (130-400); RBC Distribution Width 13.8 % (11.5-14.5); Red Blood Cell (RBC) Count 3.47 mill/uL (4.70-6.10); White Blood Cell (WBC) Count 14.7 thou/uL (4.8-10.8)
[2018-03-17 06:12] LABS: Anion Gap 11 mmol/L (10-20); BUN (Urea Nitrogen) 8 mg/dL (8.4-25.7); Calc. Creatinine Clearance 131 mL/min (70-130); Calcium 8.6 mg/dL (7.8-10.44); Carbon Dioxide 20 mmol/L (23-31); Chloride 107 mmol/L (98-107); Estimated GFR-MDRD Greater than 90; Glucose 111 mg/dL (80-115); Potassium 3.1 mmol/L (3.5-5.1); Sodium 135 mmol/L (136-145)
[2018-03-17] MEDS: Albuterol Sulfate 2.5 mg/3 ml Neb NEB PRN (06:21)
[2018-03-17] MEDS: Budesonide 0.5 MG/2 ML NEB INH SCH ×2 (06:23→19:45)
[2018-03-17] MEDS: Arformoterol 15 MCG/2 ML NEB NEB SCH ×2 (06:23→19:44)
[2018-03-17] MEDS: Potassium Chloride 20 MEQ TAB PO SCH ×2 (08:34→16:55)
[2018-03-17] MEDS: Metoprolol Tartrate 100 MG TAB PO SCH (08:35)
[2018-03-17] MEDS: OLANZapine 5 MG TAB PO SCH (08:37)
[2018-03-17] MEDS: Topiramate 100 MG TAB PO SCH (08:38)
[2018-03-17] MEDS: Enoxaparin Sodium 40 MG/0.4 ML SYRINGE SC SCH (08:38)
[2018-03-17] MEDS: Triamterene/Hydrochlorothiazide 37.5 mg/25 mg Tablet PO SCH (08:39)
--- NOTE | 2018-03-17 09:13 | PDOC.FM ---
- Subjective Subjective: 67 yo M seen at bedside. Patient is in good mood this morning in no acute distress. He states that his hand is feeling better and denies any pain. He has no specific complaints. - Objective MAR Reviewed: Yes Vital Signs & Weight: Vital Signs (12 hours) Temp Pulse Resp BP BP Pulse Ox 03/17/18 07:48 98.2 F 102 H 20 100/69 94 L 03/17/18 06:21 95 16 95 03/17/18 04:00 100.1 F H 92 20 111/73 99 03/17/18 00:49 99.8 F H 90 20 99/67 95 Weight Weight 117.979 kg I&O: 03/16/18 03/17/18 03/18/18 06:59 06:59 06:59 Intake Total 1400 Output Total 500 Balance 900 Result Diagrams: 03/17/18 05:26 03/17/18 05:26 <Satish Trevino - Last Filed: 03/17/18 09:11> - Objective Vital Signs & Weight: Vital Signs (12 hours) Temp Pulse Resp BP Pulse Ox 03/18/18 07:35 99.1 F 97 20 113/70 96 03/18/18 06:41 109 H 18 96 Weight Weight 117.979 kg I&O: 03/17/18 03/18/18 03/19/18 06:59 06:59 06:59 Intake Total 1400 730 Output Total 500 1000 Balance 900 -270 Result Diagrams: 03/18/18 04:49 03/18/18 04:49 <Wiliam Jarrell - Last Filed: 03/18/18 09:13> Phys Exam - Physical Examination Constitutional: NAD HEENT: PERRLA, moist MMs Neck: no nodes, no JVD Respiratory: clear to auscultation bilateral Cardiovascular: RRR, no significant murmur Difficult to auscultate dt habitus Gastrointestinal: soft, non-tender, no distention Musculoskeletal: no edema, pulses present Mild TTP over 3rd MCP. Slight decrease in pit clerk strength and flexion of right fingers/hand Neurological: non-focal, normal sensation, moves all 4 limbs Psychiatric: normal affect, A&O x 3 Skin: no rash, normal turgor, cap refill <2 seconds <Satish Trevino - Last Filed: 03/17/18 09:11> Dx/Plan (1) Painful swelling of joint Code(s): M25.40 - EFFUSION, UNSPECIFIED JOINT Status: Acute (2) Leukocytosis Code(s): D72.829 - ELEVATED WHITE BLOOD CELL COUNT, UNSPECIFIED Status: Acute (3) Hypokalemia Code(s): E87.6 - HYPOKALEMIA Status: Acute (4) Schizophrenia Code(s): F20.9 - SCHIZOPHRENIA, UNSPECIFIED Status: Chronic (5) Tardive dyskinesia Code(s): G24.01 - DRUG INDUCED SUBACUTE DYSKINESIA Status: Chronic (6) GERD (gastroesophageal reflux disease) Code(s): K21.9 - GASTRO-ESOPHAGEAL REFLUX DISEASE WITHOUT ESOPHAGITIS Status: Chronic (7) HTN (hypertension) Code(s): I10 - ESSENTIAL (PRIMARY) HYPERTENSION Status: Chronic - Plan Plan: Joint pain and swelling - septic arthritis vs gouty attack vs rheumatic etiology - Uric acid elevated to 8.5, pointing to a likely gout etiology. - Aspiration was completed yesterday, however sample was contaminated in transport to lab and studies were unable to be conducted. Pt is resistant to repeat aspiration. This may have to be repeated to adequately rule out infection. White count is improving and there is no left shift. He has remained afebrile, however temp is trending upward. HR is typically in 90s - continue vancomycin 15 mg/kg q8hr. Trough today - radiograph of hand finds soft tissue swelling only - procal negative - pain is currently well controlled, consider starting indomethacin if pain worsens Hypokalemia - Improved from yesterday. Replace PO. - recheck BMP in am Leukocytosis - Improving. No left shift. Infection vs inflammation - monitor vitals on medical floor - blood and urine cx pending GERD - continue home meds HTN - continue home meds Paranoid schizophrenia - Continue home meds Tardive diskinesia - no symptoms at this time. Continue home meds Dispo: Continue to treat for infection until it can be ruled out. Evaluate for Gout or rheum cause. Likely dc in am <Satish Trevino - Last Filed: 03/17/18 09:11> Attending Addendum - Attending Addendum Date/Time: 03/18/18912 I personally evaluated the patient and discussed the management with Dr. Pulvino yesterday. I agree with the History, Examination, Assessment and Plan documented above with any addition or exceptions noted below. <Wiliam Jarrell - Last Filed: 03/18/18 09:13>
[2018-03-17] MEDS: Vancomycin HCl 1.75 GM in Sodium Chloride 0.9% 500 ML IVPB SCH ×2 (09:21→20:47)
[2018-03-17 12:43] LABS: Vancomycin, Trough 37.3 ug/mL
[2018-03-17 14:32] LABS: CCP IgG Antibody 0.7 EliAU/mL (<7 Negative); EliA RAS New Method **** NEW METHOD ****; Rheumatoid Factor IgM Antibody 0.5 IU/mL (<3.5 Negative)
[2018-03-17] MEDS: Indomethacin 25 mg Capsule PO SCH ×2 (15:49→20:46)
[2018-03-17] MEDS ORDERED: Metoprolol Tartrate 25 MG TAB PO SCH (17:00)
[2018-03-17 20:28] LABS: Vancomycin, Trough 15.4 ug/mL
[2018-03-17] MEDS: Benztropine 1 MG TAB PO SCH (20:46)
[2018-03-18 05:00] LABS: #Eosinphils 0.1 thou/uL (0.0-0.7); #Lymphocytes 1.9 thou/uL (1.20-3.40); #Monocytes 1.4 thou/uL (0.11-0.59); #Neutrophils 10.3 thou/uL (1.40-6.50); %Basophils 0.2 % (0.0-1.0); %Eosinophils 0.9 % (0.0-10.0); %Monocytes 10.4 % (0.0-10.0); %Neutrophils 74.5 % (42.0-75.0); Mean Corpuscular HGB CONC 31.3 g/dL (32.0-36.0); Mean Corpuscular Hemoglobin 29.2 pg (27.0-31.0); Mean Corpuscular Volume 93.2 fL (78.0-98.0); Mean Platelet Volume 5.8 fL (7.4-10.4); Platelet Count 419 thou/uL (130-400); RBC Distribution Width 13.8 % (11.5-14.5); Red Blood Cell (RBC) Count 3.77 mill/uL (4.70-6.10); White Blood Cell (WBC) Count 13.8 thou/uL (4.8-10.8)
[2018-03-18 05:21] LABS: Anion Gap 10 mmol/L (10-20); BUN (Urea Nitrogen) 9 mg/dL (8.4-25.7); Calc. Creatinine Clearance 139 mL/min (70-130); Calcium 8.9 mg/dL (7.8-10.44); Carbon Dioxide 21 mmol/L (23-31); Chloride 109 mmol/L (98-107); Estimated GFR-MDRD Greater than 90; Glucose 115 mg/dL (80-115); Potassium 3.3 mmol/L (3.5-5.1); Sodium 137 mmol/L (136-145)
[2018-03-18] MEDS: Arformoterol 15 MCG/2 ML NEB NEB SCH ×2 (06:41→18:47)
[2018-03-18] MEDS: Budesonide 0.5 MG/2 ML NEB INH SCH ×2 (06:42→18:48)
[2018-03-18] MEDS: OLANZapine 5 MG TAB PO SCH (07:36)
[2018-03-18] MEDS: Triamterene/Hydrochlorothiazide 37.5 mg/25 mg Tablet PO SCH (07:36)
[2018-03-18] MEDS: Acetaminophen 325 MG TAB PO PRN ×3 (07:36→21:16)
[2018-03-18] MEDS: Enoxaparin Sodium 40 MG/0.4 ML SYRINGE SC SCH (07:37)
[2018-03-18] MEDS: Topiramate 100 MG TAB PO SCH (07:37)
[2018-03-18] MEDS: Metoprolol Tartrate 25 MG TAB PO SCH ×2 (07:37→21:16)
[2018-03-18] MEDS: Indomethacin 25 mg Capsule PO SCH ×3 (07:37→21:16)
[2018-03-18] MEDS: Vancomycin HCl 1.75 GM in Sodium Chloride 0.9% 500 ML IVPB SCH ×2 (08:08→21:15)
--- NOTE | 2018-03-18 08:55 | PDOC.FM ---
- Subjective Subjective: Pt seen at bedside this am resting comfortably. He states that he was taken for surgery last night, however declined the procedure. He feels that the abx should help and that he is too old for surgery. He denies any new symptoms and states that his pain is controlled. - Objective MAR Reviewed: Yes Vital Signs & Weight: Vital Signs (12 hours) Temp Pulse Resp BP Pulse Ox 03/18/18 07:35 99.1 F 97 20 113/70 96 03/18/18 06:41 109 H 18 96 Weight Weight 117.979 kg I&O: 03/17/18 03/18/18 03/19/18 06:59 06:59 06:59 Intake Total 1400 730 Output Total 500 1000 Balance 900 -270 Result Diagrams: 03/18/18 04:49 03/18/18 04:49 <Satish Trevino - Last Filed: 03/18/18 08:53> - Objective Vital Signs & Weight: Vital Signs (12 hours) Temp Pulse Resp BP BP Pulse Ox 03/18/18 11:29 97.5 F L 97 18 102/70 96 03/18/18 07:35 99.1 F 97 20 113/70 96 03/18/18 06:41 109 H 18 96 Weight Weight 117.979 kg I&O: 03/17/18 03/18/18 03/19/18 06:59 06:59 06:59 Intake Total 1400 730 Output Total 500 1000 Balance 900 -270 Result Diagrams: 03/18/18 04:49 03/18/18 04:49 <Wiliam Jarrell - Last Filed: 03/18/18 13:45> Phys Exam - Physical Examination Constitutional: NAD HEENT: PERRLA, moist MMs Neck: no nodes, no JVD Respiratory: clear to auscultation bilateral Cardiovascular: RRR, no significant murmur Gastrointestinal: soft, non-tender Musculoskeletal: no edema, pulses present R hand and forearm in bulky dressing. No pain with ROM Neurological: non-focal, normal sensation, moves all 4 limbs Psychiatric: normal affect, A&O x 3 Skin: no rash, normal turgor <Satish Trevino - Last Filed: 03/18/18 08:53> Dx/Plan (1) Painful swelling of joint Code(s): M25.40 - EFFUSION, UNSPECIFIED JOINT Status: Acute (2) Leukocytosis Code(s): D72.829 - ELEVATED WHITE BLOOD CELL COUNT, UNSPECIFIED Status: Acute (3) Hypokalemia Code(s): E87.6 - HYPOKALEMIA Status: Acute (4) Schizophrenia Code(s): F20.9 - SCHIZOPHRENIA, UNSPECIFIED Status: Chronic (5) Tardive dyskinesia Code(s): G24.01 - DRUG INDUCED SUBACUTE DYSKINESIA Status: Chronic (6) GERD (gastroesophageal reflux disease) Code(s): K21.9 - GASTRO-ESOPHAGEAL REFLUX DISEASE WITHOUT ESOPHAGITIS Status: Chronic (7) HTN (hypertension) Code(s): I10 - ESSENTIAL (PRIMARY) HYPERTENSION Status: Chronic - Plan Plan: Joint pain and swelling - septic arthritis vs gouty attack vs rheumatic etiology - Uric acid elevated to 8.5, pointing to a likely gout etiology. Currently a 24 hour urine Ca and Uric acid pending. Pt currently on indomethacin - Aspiration was completed 03/16. however sample was contaminated in transport to lab and studies were unable to be conducted. Pt is resistant to repeat aspiration. - Ortho has been consulted. It was recommended that the pt go back for surgery, however he declined. Will await further recommendations from ortho. - continue vancomycin 15 mg/kg q8hr. Initial vanc trough was elevated yesterday , however this was drawn while abx were being infused. Repeat trough was slightly low which is expected as he only got half of his am dose. Continue current dosing and recheck trough before 0900 dose on 03/19. - radiograph of hand finds soft tissue swelling only - procal negative - pain is currently well controlled Hypokalemia - Continues to be low, but asymptomatic. Replace PO - recheck BMP in am Leukocytosis - Improving slowly. - monitor vitals on medical floor - blood and urine cx negative for pathogens GERD - continue home meds HTN - continue home meds Paranoid schizophrenia - Continue home meds Tardive diskinesia - no symptoms at this time. Continue home meds Dispo: Continue to treat for infection until it can be ruled out. Evaluate for Gout or rheum cause. Dc pending ortho recommendations <Satish Trevino - Last Filed: 03/18/18 08:53> Attending Addendum - Attending Addendum Date/Time: 03/18/18 [id number] I personally evaluated the patient and discussed the management with Dr. Trevino. I agree with the History, Examination, Assessment and Plan documented above with any addition or exceptions noted below. Appreciate Dr Sparrow's care. Will discuss care plan options with him. <Wiliam Jarrell - Last Filed: 03/18/18 13:45>
[2018-03-18 13:28] LABS: Uric Acid-Urine 28.6 mg/dL
[2018-03-18] MEDS: Potassium Chloride 20 MEQ TAB PO SCH (17:02)
[2018-03-18] MEDS: Benztropine 1 MG TAB PO SCH (21:16)
[2018-03-19 04:18] LABS: Chlamydia by PCR Not Detected (NotDetected); GC by PCR Not Detected (NotDetected)
[2018-03-19 04:41] LABS: #Eosinphils 0.2 thou/uL (0.0-0.7); #Lymphocytes 1.9 thou/uL (1.20-3.40); #Monocytes 1.2 thou/uL (0.11-0.59); #Neutrophils 10.1 thou/uL (1.40-6.50); %Basophils 0.1 % (0.0-1.0); %Eosinophils 1.7 % (0.0-10.0); %Lymphocytes 14.2 % (21.0-51.0); %Monocytes 8.9 % (0.0-10.0); %Neutrophils 75.1 % (42.0-75.0); Hemoglobin 10.9 g/dL (14.0-18.0); Mean Corpuscular HGB CONC 31.6 g/dL (32.0-36.0); Mean Corpuscular Hemoglobin 29.4 pg (27.0-31.0); Mean Corpuscular Volume 93.3 fL (78.0-98.0); Mean Platelet Volume 6.1 fL (7.4-10.4); Platelet Count 460 thou/uL (130-400); RBC Distribution Width 13.9 % (11.5-14.5); Red Blood Cell (RBC) Count 3.71 mill/uL (4.70-6.10); White Blood Cell (WBC) Count 13.4 thou/uL (4.8-10.8)
[2018-03-19 05:03] LABS: Anion Gap 11 mmol/L (10-20); BUN (Urea Nitrogen) 10 mg/dL (8.4-25.7); Calc. Creatinine Clearance 125 mL/min (70-130); Calcium 8.7 mg/dL (7.8-10.44); Carbon Dioxide 20 mmol/L (23-31); Chloride 106 mmol/L (98-107); Estimated GFR-MDRD Greater than 90; Glucose 130 mg/dL (80-115); Potassium 3.6 mmol/L (3.5-5.1); Sodium 133 mmol/L (136-145)
[2018-03-19] MEDS: Budesonide 0.5 MG/2 ML NEB INH SCH (05:41)
[2018-03-19] MEDS: Arformoterol 15 MCG/2 ML NEB NEB SCH (05:43)
[2018-03-19] MEDS: Triamterene/Hydrochlorothiazide 37.5 mg/25 mg Tablet PO SCH (07:17)
[2018-03-19] MEDS: Metoprolol Tartrate 25 MG TAB PO SCH (07:17)
[2018-03-19] MEDS: Potassium Chloride 20 MEQ TAB PO SCH ×2 (07:17→15:55)
[2018-03-19] MEDS: OLANZapine 5 MG TAB PO SCH (07:17)
[2018-03-19] MEDS: Indomethacin 25 mg Capsule PO SCH ×2 (07:17→15:55)
[2018-03-19] MEDS: Topiramate 100 MG TAB PO SCH (07:17)
[2018-03-19] MEDS: Enoxaparin Sodium 40 MG/0.4 ML SYRINGE SC SCH (07:18)
--- NOTE | 2018-03-19 08:45 | PDOC.FM ---
- Subjective Subjective: Patient seen at beside this am in no acute distress. He is in a good mood and has no specific complaints. There were no acute issues over night. - Objective Vital Signs & Weight: Vital Signs (12 hours) Temp Pulse Resp BP Pulse Ox 03/19/18 07:22 98.6 F 99 16 117/75 96 03/19/18 05:43 104 H 15 97 03/19/18 05:41 104 H 15 97 Weight Weight 117.979 kg I&O: 03/18/18 03/19/18 03/20/18 06:59 06:59 06:59 Intake Total 730 1300 Output Total 1000 3350 Balance -270 -0 Result Diagrams: 03/19/18 04:07 03/19/18 04:07 <Satish Trevino - Last Filed: 03/19/18 08:42> - Objective Vital Signs & Weight: Vital Signs (12 hours) Temp Pulse Resp BP Pulse Ox 03/19/18 07:22 98.6 F 99 16 117/75 96 03/19/18 05:43 104 H 15 97 03/19/18 05:41 104 H 15 97 Weight Weight 117.979 kg I&O: 03/18/18 03/19/18 03/20/18 06:59 06:59 06:59 Intake Total 730 1300 Output Total 1000 3350 Balance -270 Result Diagrams: 03/19/18 04:07 03/19/18 04:07 <Wiliam Jarrell - Last Filed: 03/19/18 09:54> Phys Exam - Physical Examination Constitutional: NAD HEENT: PERRLA, moist MMs Neck: no nodes, no JVD Respiratory: clear to auscultation bilateral Cardiovascular: RRR, no significant murmur Gastrointestinal: soft, non-tender, no distention, positive bowel sounds Musculoskeletal: no edema, pulses present Dressing clean and in place on R hand. No pain with ROM. No TTP Neurological: normal sensation, moves all 4 limbs Psychiatric: normal affect, A&O x 3 Skin: no rash, normal turgor <Satish Trevino - Last Filed: 03/19/18 08:42> Dx/Plan (1) Painful swelling of joint Code(s): M25.40 - EFFUSION, UNSPECIFIED JOINT Status: Acute (2) Leukocytosis Code(s): D72.829 - ELEVATED WHITE BLOOD CELL COUNT, UNSPECIFIED Status: Acute (3) Hypokalemia Code(s): E87.6 - HYPOKALEMIA Status: Acute (4) Schizophrenia Code(s): F20.9 - SCHIZOPHRENIA, UNSPECIFIED Status: Chronic (5) Tardive dyskinesia Code(s): G24.01 - DRUG INDUCED SUBACUTE DYSKINESIA Status: Chronic (6) GERD (gastroesophageal reflux disease) Code(s): K21.9 - GASTRO-ESOPHAGEAL REFLUX DISEASE WITHOUT ESOPHAGITIS Status: Chronic (7) HTN (hypertension) Code(s): I10 - ESSENTIAL (PRIMARY) HYPERTENSION Status: Chronic - Plan Plan: Joint pain and swelling - septic arthritis vs gouty attack vs rheumatic etiology - Uric acid elevated to 8.5, pointing to a likely gout etiology. 24 urine uric acid is elevated. 24 hour Ca normal. Pt currently on indomethacin - Aspiration was completed 03/16. however sample was contaminated in transport to lab and studies were unable to be conducted. Pt is resistant to repeat aspiration. - Ortho has been consulted. It was recommended that the pt go back for surgery, however he declined. Ortho will evaluate with MRI scheduled for today. - continue vancomycin 15 mg/kg q8hr. Trough due today - radiograph of hand finds soft tissue swelling only - procal negative - pain is currently well controlled Hypokalemia - Continues to be low, but asymptomatic. Replace PO - recheck BMP in am Leukocytosis - Improving slowly. - monitor vitals on medical floor - blood and urine cx negative for pathogens GERD - continue home meds HTN - continue home meds Paranoid schizophrenia - Continue home meds Tardive diskinesia - no symptoms at this time. Continue home meds Dispo: Continue to treat for infection until it can be ruled out. Evaluate for Gout or rheum cause. Dc pending ortho recommendations <Satish Trevino - Last Filed: 03/19/18 08:42> Attending Addendum - Attending Addendum Date/Time: 03/19/18 0953 I personally evaluated the patient and discussed the management with Dr. Trevino. I agree with the History, Examination, Assessment and Plan documented above with any addition or exceptions noted below. <Wiliam Jarrell - Last Filed: 03/19/18 09:54>
[2018-03-19 09:13] LABS: Vancomycin, Trough 10.8 ug/mL
[2018-03-19] MEDS: Vancomycin HCl 1.75 GM in Sodium Chloride 0.9% 500 ML IVPB SCH (10:00)
--- NOTE | 2018-03-19 12:12 | MRI ---
MRI RIGHT HAND PERFORMED WITHOUT CONTRAST ENHANCEMENT: Date: 03/19/18 HISTORY: Hand pain and swelling, evaluation for infection. COMPARISON: Hand film done on 03/15/18. FINDINGS: The marrow signal changes within the carpal bones, metacarpals, and phalanges are normal. I do not se e any signs of any erosive-type change or signs for synovitis. There is motion artifact which degrade s detail. There are edema changes on the dorsum of the hand. I do not see any underlying tenosynoviti s change. The flexor tendons appear unremarkable. Carpal tunnel region is grossly unremarkable. No fl uid collections. No evidence for any infection of the MCP joints. IMPRESSION: Nonspecific soft tissue swelling in the dorsum of the hand. No signs for osteomyelitis or evidence fo r any fluid collection within the soft tissues. POS: SAWYER
--- NOTE | 2018-03-19 13:01 | PQF ---
CLINICAL DOCUMENTATION IMPROVEMENT CLARIFICATION FORM: ICD-10 Updated PLEASE DO AN ADDENDUM TO THE PROGRESS NOTE WITH ANY DOCUMENTATION UPDATES OR ADDITIONS AND CARRY THROUGH TO DC SUMMARY. THANK YOU. DATE: 03/19/18 ATTN: Dr. Trevino/ Attending Dr. Wiliam Jarrell Please exercise your independent, professional judgment in responding to the clarification form. Clinical indicators are provided on the bottom of this form for your review Please check appropriate box(s) to clarify if the following diagnosis has been ruled in or ruled out: SEPSIS [ ] Ruled in diagnosis [ ] Continue to treat [ ] Resolved [x ] Ruled out diagnosis [ ] Cannot rule out diagnosis [ ] Other diagnosis [ ] Unable to determine In addition, please specify: Present on Admission (POA): [ x] Yes [ ] No [ ] Unable to determine For continuity of documentation, please document condition throughout progress notes and discharge summary. Thank You. CLINICAL INDICATORS - SIGNS / SYMPTOMS / LABS H&P 03/15: WBC 18.6 SEPSIS MEETS SIRS CRITERIA ON LEUKOCYTOSIS, PULSE 101 PN 03/19: LEUKOCYTOSIS -IMPROVING SLOWLY -BLOOD AND URINE CX NEGATIVE FOR PATHOGENS DISPO: CONTINUE TO TREAT FOR INFECTION UNTIL IT CAN BE RULED OUT. EVALUATE FOR GOUT OR RHEUM CAUSE. RISKS: H&P 03/15: HX OA, CHRONIC BRONCHITIS, SCHIZOPHRENIA PAINFUL SWELLING JOINT TREATMENT: ORTHO CONSULT CPOE 03/15: VANCOMYCIN HCL 1.75 GM IV Q 12HR ORDER FOR MRI UPPER EXT 03/19/18 Thank you, Leatha (This form is maintained as a part of the permanent medical record) 2014 [employer] All Rights Reserved Leatha Bansal RN, BSN [email or web address] Office: [phone] [facility] HOSPITALDore[facility]
[2018-03-19 16:22] VITALS: BP 172/93; TEMP 98
--- NOTE | 2018-03-20 15:50 | EKG ---
Test Reason : Blood Pressure : / mmHG Vent. Rate : 109 BPM Atrial Rate : 109 BPM P-R Int : 178 ms QRS Dur : 082 ms QT Int : 382 ms P-R-T Axes : 066 040 036 degrees QTc Int : 514 ms Sinus tachycardia with Premature atrial complexes Otherwise normal ECG Confirmed by ADELFO QUICK M.D. ([id number]), editor department [employer] [facility] ([id number]) on 03/20/2018 3:49:53 PM Referred By: Confirmed By:ADELFO QUICK M.D.
--- NOTE | 2018-03-22 11:06 | DIS-2 ---
DATE OF ADMISSION: 03/15/2018 DATE OF DISCHARGE: 03/19/2018 RESIDENT: Satish Trevino D.O. ADMITTING ATTENDING: Lei Gong M.D. DISCHARGE ATTENDING: Wiliam Jarrell M.D. CONSULTATIONS: Orthopedics, Yann Sparrow M.D. PROCEDURES: 1. Chest x-ray on 03/15/2018, finding of no acute intracranial or cardiopulmonary process. 2. Hand x-ray on 03/15/2018, finding diffuse soft tissue edema of the right hand. 3. Joint aspiration third MCP done under fluoroscopy on 03/16/2018. 4. A right hand MRI on 03/19/2018, finding nonspecific tissue swelling of the dorsum of the hand. N o signs of osteomyelitis. No evidence for any fluid collection within the soft tissue. DISCHARGE MEDICATIONS: Triamterene/hydrochlorothiazide 37.5/25 mg 1 p.o. daily, topiramate 100 mg p. o. daily, omeprazole 40 mg p.o. daily, Zyprexa 20 mg p.o. daily, metoprolol tartrate 100 mg p.o. b.i. d., benztropine mesylate 2 mg p.o. at bedtime, allopurinol 100 mg p.o. daily, colchicine 0.6 mg p.o. daily, clindamycin 300 mg p.o. q.6 hours x10 days. DISCONTINUED MEDICATIONS: Methylprednisolone 4 mg p.o. daily. ADMITTING DIAGNOSIS: Right third MCP acute gout flare. SECONDARY DIAGNOSES: Hypertension, chronic obstructive pulmonary disease, schizophrenia, tardive dy skinesia, gastroesophageal reflux disease. HOSPITAL COURSE: This is a 67-year-old male who presented with a few days of right third MCP swellin g and pain. Upon initial presentation, there was concern for a septic joint versus gout. The patien t has had no history of gout and initially his white count was 18.6 with a neutrophil count of 76.9. His vitals on admission were within normal limits with the exception of the fact that the patient wa s tachycardic at 104. Cultures were drawn on admission, both blood and urine and these were negative . The patient was initially treated for a septic joint and was started on vancomycin, and over the c ourse of the first few days, his white count and pain did both resolve; however, the patient was also being given Indomethacin. In order to attempt to rule out a septic joint, a third MCP was aspirated under fluoro successfully. Unfortunately, this sample was spilled during transport to the lab and u kami to be evaluated for crystals or micro. The patient refused a repeat procedure. Therefore, at that time Orthopedics was consulted for opinion on continued management. Initially, the plan was to take the patient to the operating room for a surgical washout; however, the patient declined this as well. The patient was put on a bulky pressure bandage on the right hand. A 24-hour urine calcium an d 24-hour urine uric acid were collected additionally. On admission a uric acid was measured to be 8 .5. The 24-hour urine collections resulted in a uric acid of 815 which is elevated and a calcium 57, which is low normal. It was determined this is most likely gout in etiology and not infectious. Th e patient was started on colchicine and allopurinol with instructions to follow up with PCP in the ou tpatient setting. DISCHARGE INSTRUCTIONS: 1. Location: Home. 2. Diet: Regular. 3. Activity: Ad blue. 4. Followup: Follow up with PCP within 1 week.
== END 2018-03-19 18:34 | disposition home or self-care (01) | DRG 565 ==
LOC: ERS 16:19 → T4-A 20:24 → OBSVTOIN 03-16 13:42
PROVIDERS: ADMIT Family Medicine; ATTEND Family Medicine
PROC: 0R9 Upper Joints, Drainage (ICD-10-PCS; principal; 2018-03-16)
DX: M25.441 Effusion, right hand (principal); F20.0 Paranoid schizophrenia; E87.6 Hypokalemia; G24.01 Drug induced subacute dyskinesia; K21.9 Gastro-esophageal reflux disease without esophagitis; I10 Essential (primary) hypertension
CPT/HCPCS: 20605; 36415; 71045; 77002; 80048; 80053; 80202; 81003; 82340; 82550; 83520; 83605; 83690; 83735; 84145; 84443; 84550; 84560; 85025; 85652; 86140; 86200; 87086; 87491; 87591; 93005; 94640; 96365; A4216; J0696; J1650; J3370; J7050; J7611; J7626